=== PATIENT | male | born 1935 | race Caucasian/White ===

== ENCOUNTER 2023-11-17 11:21 | Emergency (ER) | payer MEDICARE, MEDICAID, SELFPAY ==
[2023-11-17 11:23] VITALS: BP 96/55; PULSE 68; RESP 12; TEMP 36.6; O2SAT 98; BMI 20.7
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
[2023-11-17 11:38] VITALS: RESP 12
--- NOTE | 2023-11-17 12:13 | PC.NURSE ---
When asked pt suicide questions he stated that he would like to get out of here and that the food was bad where he was staying. He also said that he would like to be treated like a human being.
[2023-11-17 14:43] VITALS: BP 106/49; PULSE 66; RESP 14; TEMP 36.9; O2SAT 97
== END 2023-11-17 15:00 | disposition home or self-care (01) ==
PROVIDERS: Emergency Provider Emergency Medicine; PCP Family Medicine
DX: F91.9 Conduct disorder, unspecified (principal); Z66 Do not resuscitate
CPT/HCPCS: 99282